=== PATIENT | male | born 1960 | race Caucasian/White ===

== ENCOUNTER 2024-08-04 12:58 | Outpatient (CLI) | payer OTHER, SELFPAY ==
--- NOTE | 2024-08-04 13:07 | CT_ITS ---
WS: [id number] CT ABDOMEN WITH AND WITHOUT CONTRAST HISTORY: ABDOMINAL PAIN AND SWELLING Contiguous single phase 5 mm axial imaging performed to the abdomen. Oral contrast has been provided. Coronal and sagittal reformats are submitted. All CT scans at [facility] use at least one of these dose optimization techniques: automated exposure control; mA and/or kV adjustment per patient size (includes targeted exams where dose is matched to clinical indication); or iterative reconstruct ion. IV CONTRAST: Omnipaque 350; 100 mL IV. Oral contrast: Yes. DLP: 1388.37 mGy.cm COMPARISON: None available. Lower thorax: Lung bases are clear. Heart is normal size. Small hiatal hernia. Liver/biliary system: Normal size liver. Hepatic cyst between the middle and LEFT hepatic veins. Cyst measures 11 mm. There is an additional smaller indeterminate 6 mm low-attenuation mass in the peanut shaker ior RIGHT lobe of the liver. Mild hepatic steatosis. Portal vein is patent and normally enhancing. Gallbladder: Normal. No gallstones or wall thickening. No pericholecystic fluid. Pancreas: Normal size pancreas and pancreatic duct. No adjacent inflammation. Spleen: Normal size spleen. No mass or infarct. Adrenal glands: Normal RIGHT adrenal gland. Well-circumscribed 12 x 8 mm low-attenuation mass in the LEFT adrenal gland. Negative Hounsfield units on the noncontrast study consistent with an adenoma. Right kidney: Normal. No obstruction or calcification. No mass. Left kidney: Simple cyst upper pole LEFT kidney. The largest measures 2.4 cm. No obstruction or calci fication. Aorta: Mild atherosclerosis with no aneurysm. Lymphadenopathy: None. Free fluid: None. GI tract: As visualized within the abdomen normal. Small portion of the appendix is included and norm al. No colitis or enteritis. Normal appearance of the stomach. Abdominal wall: Unremarkable abdominal wall. No hernia. Visualized osseous structures: Moderate degenerative disc disease and spondylosis in the lower thorac ic and lumbar spine. No destruction. CT/CT abdomen wo/w con [id number] IMPRESSION: 1. No ascites or adenopathy. 2. Hepatic cysts and too small to characterize hypodensity in the liver. 3. LEFT renal cyst x2. 4. Negative gallbladder. 5. Benign LEFT adrenal adenoma measures 12 x 8 mm. 6. Visualized GI tract is negative.
[2024-08-04] MEDS: iohexol 350 mg/mL 500 mL Btl (per mL) IV (13:18)
[2024-08-04] MEDS: iohexol 350 mg/mL 500 mL Btl (per mL) PO (13:18)
== END 2024-08-04 12:59 | disposition home or self-care (01) ==
PROVIDERS: Family Provider Family Medicine; Visit Provider Nurse Practitioner
DX: K76.89 Other specified diseases of liver (principal); N28.1 Cyst of kidney, acquired; D35.02 Benign neoplasm of left adrenal gland; K44.9 Diaphragmatic hernia without obstruction or gangrene; R93.2 Abnormal findings on diagnostic imaging of liver and biliary tract; K76.0 Fatty (change of) liver, not elsewhere classified; I70.0 Atherosclerosis of aorta; M51.34 Other intervertebral disc degeneration, thoracic region; M51.369 Other intervertebral disc degeneration, lumbar region without mention of lumbar back pain or lower extremity pain
CPT/HCPCS: 74170

== ENCOUNTER 2025-06-19 08:45 | Outpatient (CLI) | payer OTHER, SELFPAY ==
--- NOTE | 2025-06-19 08:55 | USCV_ITS ---
PaulinoNaveen oh Age: 64 Gender: M : 1960 Exam Date: 06/19/2025 09:00 Ordering Phys: Chantel Mendoza Technologist: SHEREE Exam Location: [facility] [place] Indication: Screening HISTORY: Diameter (cm) AP x Transverse x Length Velocity (cm/s) Waveform Prox Aorta: 2.17 x 2.14 x 24.60 Triphasic Mid Aorta: 2.19 x 2.41 x 46.40 Triphasic Distal Aorta: 1.92 x 1.79 x 35.40 Triphasic Right Iliac Prox: 1.38 x 1.41 x 43.00 Triphasic Left Iliac Prox: 1.20 x 1.52 x 63.50 Triphasic Stent Prox Landing x x Aneurysmal Sac Max x x Lt Lat Sac Dim Rt Lat Sac Dim Stent Dist Landing x x Right Iliac Stent x x Left Iliac Stent x x Right Renal Art Left Renal Art FINDINGS: Comparison: none available. Ectatic abdominal aorta with evidence of atherosclerotic plaque noted. No evidence of abdominal aortic aneurysm. There is evidence of atherosclerotic plaque no significan stenosis in the right common iliac artery. There is evidence of atherosclerotic plaque no significan stenosis in the left common iliac artery. CONCLUSIONS No evidence of abdominal aortic or bilateral iliac aneurysm. Dr. Eileen Rangel DO (Electronically Signed) Final Date: 19 June 2025 09:26 S
== END 2025-06-19 08:46 | disposition home or self-care (01) ==
PROVIDERS: Visit Provider Nurse Practitioner
DX: Z01.89 Encounter for other specified special examinations (principal); I77.811 Abdominal aortic ectasia; I70.0 Atherosclerosis of aorta; I70.8 Atherosclerosis of other arteries
CPT/HCPCS: 76706